=== PATIENT | male | born 1995 | race Caucasian/White ===

== ENCOUNTER 2017-01-03 05:46 | Day surgery (SDC) | payer OTHER ==
[~2017-01-03] VITALS: Ht 182.9 cm; Wt 89.8 kg
[2017-01-03] VITALS (8 sets, daily range): BP systolic 121–129; BP diastolic 63–85; PULSE 61–91; RESP 12–20; O2SAT 94–98
[~2017-01-03 05:46] MED LIST: ALBU6.7H INH; EPIN0.3P2 IJ; FLUT9.9S NS; HYDR-4003 PO; TRIA60LO3 TOP
[2017-01-03] MEDS ORDERED: fentaNYL-PF 50 mCg/mL 2 mL Inj ONE (05:47)
[2017-01-03] MEDS ORDERED: Propofol 10,000 mCg/mL 20 mL Inj ONE (05:47)
[2017-01-03] MEDS ORDERED: EPHEDrine/NS 5 mg/mL 5 mL Syringe ONE (05:47)
[2017-01-03] MEDS: Lactated Ringer's 1,000 ML IV SCH ×2 (05:48→07:27)
--- NOTE | 2017-01-03 07:07 | PCM.HPANE ---
Patient Data Surgeon Admitting Provider: Attending Provider:Daryn Green DPM Primary Care Physician:Carrington Other Provider:Faustino Munroe Anesthesia Reason for Visit Right Toe Pain, Arthritis Of Toe Joint Ht/WT & BMI Height (Feet): 6 Height (Inches): 0.00 Weight (Kilograms): 89.800 Body Mass Index 26.00 Allergies Coded Allergies: Bumble Bee (Verified Allergy, Severe, Anaphylaxis, 12/31/16) Past Anesthesia History Anesthesia History: Denies:: Anesthesia Reactions, Fam Anesthesia Reaction, Fam Malignant Hypertherm, Malignant Hyperthermia Diabetes History Hx Diabetes?: No MRSA MRSA: No Medications Home Meds Incl Beta Rich: No Reported Medications Hydrocodone-Acetaminophen 5-325 mg 1 Each Tablet1 Tablet PO QID PRN For Pain Ref 0 12/31/16 Triamcinolone Acetonide 60 Ml Lotion1 Applic TOP BID #60 ML Ref 0 12/31/16 Albuterol Sulfate (Proventil HFA Inhaler)6.7 Gm Hfa.aer.ad2 Puff INH Q4 PRN For Shortness of Breath #1 INHALER Ref 0 12/31/16 Fluticasone Propionate (Flonase Allergy Relief)50 Mcg/Actuation Custer.susp2 Custer NS DAILY 12/31/16 Epinephrine (Epipen 2-Jesús)0.3 Mg/0.3 Ml Auto.injct0.3 Mg IJ DIRECTED PRN For Anaphyllaxis 12/31/16 History History of ENT Problems?: No HEENT History: Denies:: Abnormal Airway Cataracts Difficult Intubation Dysphagia Glaucoma Hearing Problem Sinus Problem TMJ Denture Type: None Teeth Condition: Within Normal Limits Hx of Heart Problems?: No Cardiovascular History: Denies:: AICD Abdominal Aortic Aneurism Atrial Fibrillation Cardiac Surgery Chest Pain Congestive Heart Failure Coronary Artery Disease Edema Heart Murmur Hypertension Irregular Heartbeat Pacemaker Peripheral Vascular Rheumatic Fever Thrombophlebitis Valvular Heart Disease Hx of Respiratory Problem?: Yes Respiratory History: Positive for:: Asthma (Exercise induced ) Use of Inhalers / NEBS Hx Neurologic Problems?: No Hx of GI Problems?: Yes Other GI Pertinent History: Hx of gastroenteritits Hx of Problems?: No Male Hx: Denies:: Prostate Problems Scrotal Mass Testicular Surgery Hx Musculoskeletal Problems?: Yes Musculoskeletal History: Positive for:: Musculoskeletal Trauma (Hx of right hand fx, right foot fx) Hx of Psycho/Social Problems?: Yes Hx Surgeries?: Yes (Ear tubes, tonsils) Hx Any Other Health Problems?: Yes Other History: Denies:: Cancer Endocrine Disease Hospitalization Thyroid Disease History Blood Transfusions: Positive for:: Accept Blood Products? Hx Diabetes: No Hx Alcohol Use: Yes (1/week)Hx Substance Use: Yes (Marijuana daily) Smoking Status: Current Every Day Smoker Have You Smoked inLast 12 mo: Yes Stop/Bang S-Snoring: Do You Snore Loudly: No T-Tired: feel tired, fatigued: Yes O-Obsered: Observed not breath: No P-Blood Pressure: treated: No B- Body Mass Index > 35 kg/m2: No A- Age over 50: No N- Neck Large Circumference: No G- Gender Male: Yes FRIEDA Total Score: 2 Risk Assessment Category Category 1A: Patient has history of documented sleep apnea, and HAS NOT received any narcotic, sedative or anesthesia administration during this stay. Category 1B: Patient has history of documented sleep apnea, and HAS received any narcotic , sedative or anesthesia administration during this stay Category 2: Patient has SUSPECTED Obstructive Sleep Apnea, and HAS received any narcotic , sedative or anesthesia administration during this stay. Category 3: Patient has SUSPECTED Obstructive Sleep Apnea and HAS NOT received narcotic, sedative or anesthesia administration during this stay. Category 4: Outpatient in Procedural Areas with known sleep apnea or who screen positive for High Risk via the STOP/BANG questionnaire. Exam Exam Vital Signs Vital Signs Date Time Temp Pulse Resp B/P Pulse Ox O2 Delivery O2 Flow Rate FiO2 01/03/17 06:17 35.7 91 12 127/70 98 Room Air General Appearance: Alert, Oriented X3, Cooperative HEENT/AIRWAY: MP 2, Neck Movement (from), Mouth Opening (wnl) Lungs: Clear to Auscultation Meds/Labs/Diagnostics Admission Meds Current Medications Lactated Ringer's (Lr) 1,000 ml @ 120 mls/hr Q8H20M IV Last administered on t 05:48; Start 01/03/17 at 05:00; Stop 01/03/17 at 13:19 Plan Impression Patient chart reviewed, patient interviewed and anesthestic plan with risks, benefits, and alternatives discussed, and informed consent obtained. ASA Physical Status: ASA2 Mod Systemic Disease Anesthetic Plan: GA Bene/Risks/Altern/Consents: Yes HP Complete Prior to Induction: Yes Mika Weeks MD January 03, 2017 07:07
[2017-01-03] MEDS ORDERED: CeFAZolin Inj 2 gm / 50mL D5W IV ONE (07:15)
[2017-01-03] MEDS ORDERED: CeFAZolin Inj 2 GM in IV Premix 1 EACH IV ONE (07:20)
[2017-01-03] MEDS ORDERED: Lactated Ringer's 1,000 ML IV SCH (07:36)
[2017-01-03] MEDS ORDERED: Lactated Ringer's 500 ML IV PRN (07:36)
[2017-01-03] MEDS ORDERED: Atropine 0.4 mg/mL Inj IVPUSH PRN (07:40)
[2017-01-03] MEDS ORDERED: Phenylephrine 10,000 mCg/mL Inj IVPUSH PRN (07:40)
[2017-01-03] MEDS ORDERED: HYDROmorphone 1 mg/mL Inj IVPUSH PRN (07:40)
[2017-01-03] MEDS ORDERED: EPHEDrine Sulfate 50 mg/mL Inj IVPUSH PRN (07:40)
[2017-01-03] MEDS ORDERED: fentaNYL-PF 50 mCg/mL 2 mL Inj IVPUSH PRN (07:40)
[2017-01-03] MEDS ORDERED: Ondansetron 2 mg/mL 2 mL Inj IVPUSH PRN (07:40)
[2017-01-03] MEDS ORDERED: Dexamethasone 4 mg/mL Inj IVPUSH PRN (07:40)
[2017-01-03] MEDS ORDERED: Labetalol 5 mg/mL 4 mL Inj IV PRN (07:40)
[2017-01-03] MEDS ORDERED: hydrALAZINE 20 mg/mL Inj IVPUSH PRN (07:40)
[2017-01-03] MEDS ORDERED: Bupivacaine-MPF 0.5% W/EPI 30 mL Inj INFILTRATE ONE (07:52)
[2017-01-03] MEDS ORDERED: Bacitracin Ointment Packet TOPICAL ONE (08:12)
[2017-01-03] MEDS ORDERED: Dexamethasone 4 mg/mL Inj INTRARTICU ONE (08:19)
[2017-01-03] MEDS ORDERED: oxyCODONE-Acetamin 5-325 mg Tablet PO PRN (08:30)
--- NOTE | 2017-01-03 08:43 | PCM.PODPO ---
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 Surgical timeout was observed. Upon initiation of general anesthesia the fourth metatarsal phalangeal joint of the right foot was anesthetized utilizing 5 cc 1% lidocaine plain and 0.5% Marcaine plain and one mix. The right lower extremity was prepped and draped in the usual aseptic manner. Attention was directed to the dorsal portion metatarsal phalangeal joint where an approximately 2 cm linear incision was made. This incision was deepened via sharp and blunt dissection care taken to cauterize superficial vessels. The extensor tendon was retracted laterally and a linear capsular incision was made. Subperiosteal dissection was performed exposing the joint. There was noted to be significant chondromalacia and dorsal osteochondral prominence on the fourth metatarsal head. This appeared to be due to a malunited displaced fracture of the dorsal fourth metatarsal head. The osteochondral projection was markedly limiting of dorsal excursion of the proximal phalangeal base. A cheilectomy procedure was performed utilizing a small sagittal saw. Subchondral fenestration was performed utilizing a 0.045 inch K wire. Detached hyalin cartilage was debrided and the margin beveled smooth. The fourth MPJ was placed through a range of motion approximately 60 dorsiflexion was noted. The site was copiously irrigated, capsule repaired with 4-0 Vicryl subcutaneous tissues with 4-0 Vicryl and skin with 4-0 Prolene. 1 cc Decadron phosphate 4 mg per mL was infiltrated. An antibiotic ointment Adaptic dressing followed by a mildly compressive bandage was applied, the patient was extubated uneventfully and left the operating suite in apparently satisfactory condition. There were no complications Grafts, Implants: None Complications There were no periprocedural complications identified. Condition Stable Anesthetic Administered: GA Drains: None Catheters: None Output, Estimated Blood Loss: 0 Blood Admin during surgery: No Surgical Cast or Splint: Post-op Boot Surgical Specimen Removed: No Specimen sent to Pathology: No Post Operative Plan d/c to home. Post op instructions reviewed, f/u in o/p clinic in 5 days Daryn Green DPM January 03, 2017 08:43
--- NOTE | 2017-01-03 09:33 | PCM.ANEP1 ---
Post Anesthesia Phase 1 PACU Phase 1 Assessment Date of Service: January 03, 2017 Vital Signs Vital Signs Date Time Temp Pulse Resp B/P Pulse Ox O2 Delivery O2 Flow Rate FiO2 01/03/17 08:47 36.5 75 19 123/70 97 Room Air 01/03/17 08:46 65 20 123/68 94 Room Air 01/03/17 08:40 64 15 121/75 96 Room Air 01/03/17 08:35 62 16 122/74 96 Room Air 01/03/17 08:30 79 14 126/68 97 Room Air 01/03/17 08:26 36.8 61 18 129/85 97 Room Air 01/03/17 06:17 35.7 91 12 127/70 98 Room Air Anesthetic Administered: GA Level of Alertness: Awake, talking MELARA's with Equal Strength: Yes Pain: No Nausea or Vomiting: No Oxygen Delivery: Room Air Lungs: Normal Air Movement Complications: No Follow up Care: No Mika Weeks MD January 03, 2017 09:33
== END 2017-01-03 23:59 | disposition home or self-care (01) ==
LOC: SAS 05:46
PROVIDERS: ATTEND Podiatrist
DX: M19.171 Post-traumatic osteoarthritis, right ankle and foot (principal); M94.271 Chondromalacia, right ankle and joints of right foot; M79.674 Pain in right toe(s); F90.9 Attention-deficit hyperactivity disorder, unspecified type; F91.9 Conduct disorder, unspecified; F20.9 Schizophrenia, unspecified; F84.9 Pervasive developmental disorder, unspecified; F91.3 Oppositional defiant disorder; Z79.51 Long term (current) use of inhaled steroids
CPT/HCPCS: 28122; J0690; J1100; J2250; J3010; J7120